=== PATIENT | male | born 1995 | race Caucasian/White ===

== ENCOUNTER → 2021-05-23 15:17 | Outpatient (CLI) | payer OTHER, SELFPAY | PROVIDERS: PCP Family Medicine; Referring Provider Family Medicine; Visit Provider Family Medicine | DX: Z20.822 Contact with and (suspected) exposure to COVID-19 (principal) | CPT/HCPCS: 87635; U0005; U0003 ==

== ENCOUNTER 2024-11-28 09:42 | Emergency (ER) | payer SELFPAY ==
[2024-11-28 09:43] VITALS: BP 155/100; PULSE 95; RESP 16; TEMP 36.1; O2SAT 98; BMI 26.6
--- NOTE | 2024-11-28 11:21 | EDS_ITS ---
HPI History of Present Illness Chief Complaint: Back Informant: patient Narrative Narrative: Patient is a 29-year-old male with history of prior back injury (10 years ago) when he fell 2 stories. He states since then he has had back issues. He states on Thursday he was put on his pants and all of a sudden his back became excruciatingly painful and he fell to the ground. He states he has shocking pain in the diffuse bilateral back rating down to his legs he states is slightly worse on the left compared to the right. Denies any associated numbness. Denies any bowel or bladder incontinence. States yesterday took him 3 hours just moved 10 feet in his house. Has been taking ibuprofen and Tylenol with no relief of his pain. States any type of movement makes it worse. Better when he lays flat. Denies any fever or chills. No other complaints or concerns reported at this time. Last had either ibuprofen or Tylenol (not sure )at 630 this morning. States he has seen a chiropractor in the past for this but not recently. [facility] Medical History (Updated 11/28/24 @ 14:[address] Stacey Wilkins, DO) Acute pharyngitis, unspecified Chronic neck and back pain Shortness of breath Home Medications ?Medication ?Instructions ?Recorded ?Last Taken ?Type diazepam 5 mg tablet (Valium) 5 mg PO TID PRN muscle s pasm 3 11/28/24 Unknown Rx days #14 tabs prednisone 20 mg tablet 40 mg (2 x 20 mg) PO DAILY # 8 tabs 11/28/24 Unknown Rx Allergy/AdvReac Type Severity Reaction Status Date / Time No Known Allergies Allergy Verified 11/28/24 09:44 Social History Smoking Status: Never smoker alcohol intake: never EXAM Physical Exam Const Vital Signs: 11/28/24 09:43 11/28/24 11:42 11/28/24 13:29 Temperature 96.9 F L Temperature Source Temporal Pulse Rate 95 88 62 Respiratory Rate 16 16 16 Blood Pressure 155/100 H 134/80 H Blood Pressure Mean 118 98 Pulse Ox 98 98 97 Oxygen Delivery Method Room Air Room Air Room Air Positive well nourished and well developed General Appearance ED: well developed and NAD HEENT Reports moist mucous membranes Neck supple Neck Narrative: Normal range of motion of the neck Resp normal respiratory effort Cardio regular rate and regular rhythm GI normal to inspection, nondistended, normoactive bowel sounds and soft to palpation Back/Spine Back/Spine Narrative: No midline tenderness. Tenderness palpation of the bilateral SI joints, more pronounced on the left compared to the right. Negative straight leg test bilaterally. Pain reproduced with active range of motion of the legs. No ankle clonus appreciated. Normal patellar reflexes bilaterally. No foot drop appreciated. Lumbar Spine / Lower Back: ROM limited Extremity normal to inspection Extremity Narrative: 2+ DP pulses General Extremety ED: Negative for edema General Extremity: Negative for edema Neuro oriented x3 and no sensory deficits noted Sensorium / Orientation: alert Motor Exam: strength 5/5 throughout Psych mental status grossly normal Skin no rashes or lesions noted and no wounds MDM MDM MDM Narrative Medical decision making narrative: Patient evaluated for back pain. Has a history of a prior back injury. He has not had midline tenderness pain. Not having fevers. No cauda equina syndrome. Differential includes back strain,, muscle spasms, herniated disc, generative disc disease and arthritis of the SI joint. Will suspicion for sciatica given that he has negative straight leg test bilaterally. Does report pain rating down her legs to his bilateral feet. Patient given IM morphine and prednisone initially. I do not think x-ray imaging is indicated given no midline tenderness and no acute injury/trauma. He does not meet criteria for emergent MRI and does not have any acute neurologic deficits or red flags for cauda equina. I did discuss this with this patient. Patient voices frustration as he still continues to have pain in feels that we are just giving him medications. I counseled that with his exam he does not meet criteria for emergent MRI and I do not think repeat x-ray imaging will change attendant. I do think he needs follow-up with spinal surgery we will give him a referral. He verbalized understand this. Is given additional dose of IM morphine as well as oral diazepam. Will start him on a burst of steroids as well as Valium for symptom control as he is acting like he has more spasms. He does have pain but he does clinically seem to be improving while the emergency room. He states that he does not want to just get meds and stay in the hospital and he prefer just to go home and rest. Did chromosomal disorders counselor at length signs and symptoms of cauda equina and return precautions. Discharge Plan Triage Chief Complaint: Back ED Provider: Stacey Wilkins Dx/Rx/DC Orders Clinical Impression: Sacroiliac joint pain, Acute low back pain Instructions: ED Back Spasm, No Trauma Prescriptions: New prednisone 20 mg tablet 40 mg PO DAILY Qty: 8 0RF diazepam [Valium] 5 mg tablet 5 mg PO TID PRN (Reason: muscle spasm) 3 Days Qty: 14 0RF Primary Care Provider: Anton Lemos Referrals: Cesar Walker MD [Med Staff - Active Staff] - Anton Lemos MD [Primary Care Provider] - Activity Restrictions/Additional Instructions: Please follow-up with the spinal surgery. Begin referral. If you develop new weakness or numbness or difficulty controlling your bowels or bladders please return to the emergency room. If you cannot control your pain please return the emergency room. Do not drink alcohol taking muscle relaxer prescribed today. Continue to take ibuprofen up to 600 mg every 6 hours and alternate with Tylenol for pain control as well. You may try Lidoderm patches and heat to your lower back. Print Language: [place]ian Disposition Disposition: Home, Self Care
[2024-11-28] MEDS: predniSONE 20 MG Tablet 60 MG PO (11:28)
[2024-11-28] MEDS: morphine 10 MG/ML Syringe 8 MG IM ×2 (11:28→13:24)
[2024-11-28 11:42] VITALS: PULSE 88; RESP 16; O2SAT 98
[2024-11-28] MEDS: diazePAM 5 MG Tablet PO (13:24)
[2024-11-28 13:29] VITALS: BP 134/80; PULSE 62; RESP 16; O2SAT 97
== END 2024-11-28 14:37 | disposition home or self-care (01) ==
PROVIDERS: Emergency Provider Emergency Medicine; PCP Family Medicine; Visit Provider Emergency Medicine
DX: M53.3 Sacrococcygeal disorders, not elsewhere classified (principal); M54.50 Low back pain, unspecified
CPT/HCPCS: 96372; 99282